=== PATIENT | female | born 1955 | race Caucasian/White ===

== ENCOUNTER 2019-04-04 12:22 | Emergency (ER) | payer MEDICARE, SELFPAY ==
[2019-04-04] VITALS (8 sets, daily range): BP systolic 124–146; BP diastolic 66–95; PULSE 71–89; RESP 16; TEMP 36.8; O2SAT 96–99; BMI 19.6
--- NOTE | 2019-04-04 12:56 | CT_ITS ---
STUDY: CT BRAIN WITHOUT CONTRAST REASON FOR EXAM: Female, 64 years old. RADIATION DOSAGE (If Supplied By Facility): CTDIvol = ( 44.99 ) mGy, DLP = ( 745.49 ) mGycm TECHNIQUE: Transaxial CT imaging of the brain was performed without administration of intravenous contrast material. Individualized dose optimization techniques were used for this CT. COMPARISON: No relevant priors. FINDINGS: Normal soft tissue structures. Normal calvarium. Normal size ventricles and extra-axial spaces for the patient's age. MLO minimal priventricular lucencies consistent with deep white matter ischemic changes. Normal basal ganglia and thalami. Normal brainstem. Normal cerebellum. There is no intracranial hemorrhage. There are no findings of an acute ischemic infarction. Normal visualized paranasal sinuses. CT/Brain/Head without Contrast IMPRESSION: Periventricular lucencies consistent with deep white matter ischemic changes. Electronically Signed: Gaurav Hennessy, at 14:21 EDT Tel , Service support ,
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
--- NOTE | 2019-04-04 18:29 | ED.RN ---
PER LATASHA PT REFERRED [facility]; NO ACCEPTANCE OF NOW
[2019-04-04 19:13] LABS: Bacteria 0 SEEN /hpf (None Seen); Squamous Epithelial Cells - UA 0 SEEN /hpf (5-10)
[2019-04-04 19:14] LABS: Color, Urine Yellow (Yellow); Glucose, Dipstick Normal (Normal); Ketone-Dipstick 15 mg/dl (Negative); Leukocyte Esterase-Dipstick Negative /ul (Negative); Nitrite-Dipstick Negative (Negative); Occult Blood-Urine Negative /ul (Negative); Protein-Dipstick Negative (Negative); Specific Gravity, Urine 1.005 (1.002-1.030); Urine Bilirubin Dipstick Negative (Negative); Urine Clarity Clear (Clear); Urine Urobilinogen Normal (Normal)
[2019-04-04 19:30] LABS: Mucous, Urine RARE /hpf (<or=2+); Red Blood Cells-Urine 0-5 SEEN /hpf (0-5); White Blood Cells 0-5 SEEN /hpf (0-5)
[2019-04-04 19:39] LABS: Amphetamine Urine VISTA NEGATIVE (<1000 ng/mL); Barbiturate Urine VISTA NEGATIVE (< 200 ng/mL); Benzodiazepine Urine VISTA NEGATIVE (< 200 ng/mL); Cocaine Urine VISTA NEGATIVE (< 300 ng/mL); Ecstacy Urine VISTA NEGATIVE (< 500 ng/mL); Methadone Urine VISTA NEGATIVE (< 300 ng/mL); PCP Urine VISTA NEGATIVE (< 25 ng/mL); THC Urine VISTA NEGATIVE (< 50 ng/mL); Vista UDS pH Range 7
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
--- NOTE | 2019-04-05 00:36 | ED.RN ---
THIS NURSE ATTEMPTED TO CALL [phone] TO GIVE REPORT ON PT. MESSAGE WAS LEFT ON MACHINE TO CALL [facility]. NO ONE WAS AVAILABLE TO ANSWER PHONE.
[2019-04-05 01:00] VITALS: RESP 12
[2019-04-05 01:49] VITALS: BP 126/79; PULSE 89; RESP 18; O2SAT 100
== END 2019-04-05 02:00 ==
PROVIDERS: Emergency Provider Emergency Medicine; Family Provider Internal Medicine; PCP Internal Medicine
DX: F03.91 Unspecified dementia, unspecified severity, with behavioral disturbance (principal); F41.9 Anxiety disorder, unspecified; F32.9 Major depressive disorder, single episode, unspecified; Z79.899 Other long term (current) drug therapy
CPT/HCPCS: 36415; 70450; 80053; 80061; 80307; 80320; 81001; 81002; 84443; 85025; 87086; 87088; 99283; G0480

== ENCOUNTER → 2019-04-04 | Outpatient (CLI) | payer MEDICARE, SELFPAY ==
[2019-04-04 13:13] LABS: Absolute Lymphocyte Count 1.03 X10^3/ul (0.83-4.51); Absolute Neutrophil Count 6.7 X10^3/uL (2.0-7.7); Basophil# 0.03 X10^3/uL; Basophil% 0.4 % (0-1); Eosinophil# 0.01 X10^3/uL; Eosinophils% 0.1 % (0-5); Hematocrit 43.6 % (37-47); Hemoglobin 13.7 g/dl (12.0-15.0); Lymphocyte # 1.03 X10^3/ul (4.0); Lymphocyte % 12.9 % (19-41); Mean Corp Hgb Conc 31.4 g/gl (32-36); Mean Corpuscular Hgb 29.3 pg (27.0-32.0); Mean Corpuscular Volume 93.2 fL (81-99); Mean Platelet Vol. 11.2 fl (6.2-12.0); Monocyte# 0.25 X10^3/uL; Monocyte% 3.1 % (0-10); Neutrophil # 6.68 X10^3/uL (2.7-7.7); Neutrophil % 83.4 % (47-70); Platelet Count 247 K/mm3 (150-450); RBC Distribution Width CV 14.9 % (11.6-14.6); RBC Distribution Width SD 50.2 fl (35.1-43.9); Red Blood Count 4.68 M/mm3 (4.2-5.4)
[2019-04-04 13:14] LABS: POSITIVE COUNT NO; POSITIVE DIFFERENTIAL NO; POSITIVE MORPHOLOGY NO
[2019-04-04 13:29] LABS: Color, Urine Yellow (Yellow); Glucose, Dipstick Normal (Normal); Ketone-Dipstick 5 mg/dl (Negative); Leukocyte Esterase-Dipstick 25 /ul (Negative); Nitrite-Dipstick Negative (Negative); Occult Blood-Urine Negative /ul (Negative); Protein-Dipstick 30 mg/dl (Negative); Urine Bilirubin Dipstick Negative (Negative); Urine Clarity Sl. Cloudy (Clear); Urine Urobilinogen 1 mg/dl (Normal)
[2019-04-04 13:30] LABS: ALB/GLOB Ratio 1.3 RATIO (0.9-2.4); AST(SGOT) 36 U/L (15-37); Alanine Aminotransfer ALT/SGPT 37 U/L (13-56); Alkaline Phosphatase 57 U/L (45-117); Anion Gap 5 (5-15); BUN 9 mg/dL (7-18); BUN/Creat Ratio 12.4 RATIO (10-20); Calcium,Total 8.7 mg/dL (8.5-10.1); Chloride 105 mmol/L (98-107); Cholesterol 191 mg/dL (200); Creatinine, Serum 0.72 mg/dL (0.55-1.02); EST Glomerular Filtration Rate 86 mL/min (>60); Est Glom Filt Rate - Afr Amer 104 mL/min (>60); Globulin 3.1 g/dL (2.2-4.2); Glucose 114 mg/dL (74-106); High Density Lipoprotein 88 mg/dL; Potassium 4.3 mmol/L (3.5-5.1); Protein, Total 7.1 g/dL (6.4-8.2); Sodium Level 142 mmol/L (136-145); Thyroid Stim Hormone (TSH) 0.85 uIU/mL (0.358-3.74); Triglycerides 50 mg/dL; Very Low Density Lipoprotein 10 mg/dL (5-40)
== END | disposition home or self-care (01) ==
LOC: LABSPEC 04-12 16:12
PROVIDERS: Family Provider Internal Medicine; PCP Internal Medicine; Referring Provider Nurse Practitioner; Visit Provider Nurse Practitioner
DX: F03.91 Unspecified dementia, unspecified severity, with behavioral disturbance (principal)
CPT/HCPCS: 80053; 80061; 81002; 84443; 85025; 87086; 87088

== ENCOUNTER → 2019-09-13 15:51 | Outpatient (CLI) | payer MEDICARE, SELFPAY ==
[2019-04-04 12:23] VITALS: BMI 19.6
--- NOTE | 2019-09-13 15:58 | RAD_ITS ---
STUDY: X-RAY - SACRUM/COCCYX REASON FOR EXAM: Female, 64 years old. Fall. Pain. TECHNIQUE: 3 view(s) of the sacrum and coccyx were obtained. COMPARISON: None. FINDINGS: Normal bilateral sacroiliac joints. Normal visualized sacral ala and fused sacral bodies. Normal sacrococcygeal junction with a normal angulation. Normal coccygeal segments. The presacral soft tissue structures are unremarkable. There is no demonstrated fracture. RAD/Sacrum-Coccyx min 2 Views IMPRESSION: Normal x-rays of the sacrum and coccyx. Electronically Signed: Juve Sanchez MD at 19:30 EST , Service support ,
== END ==
PROVIDERS: Family Provider Internal Medicine; PCP Internal Medicine; Referring Provider Nurse Practitioner; Visit Provider Nurse Practitioner
DX: M53.3 Sacrococcygeal disorders, not elsewhere classified (principal); W19.XXXA Unspecified fall, initial encounter
CPT/HCPCS: 72220

== ENCOUNTER 2019-12-14 19:30 | Emergency (ER) | payer MEDICARE, OTHER, SELFPAY ==
[2019-04-04 12:23] VITALS: BMI 19.6
[2019-12-14 19:32] VITALS: BP 115/87; PULSE 87; RESP 20; TEMP 36.5; O2SAT 98; BMI 19.2
--- NOTE | 2019-12-14 19:45 | CT_ITS ---
STUDY: CT BRAIN WITHOUT CONTRAST REASON FOR EXAM: Female, 64 years old. Mental status changes. Increased confusion and violence. HX OF DEMENTIA. RADIATION DOSAGE (If Supplied By Facility): CTDIvol = ( 44.99 ) mGy, DLP = ( 745.49 ) mGycm TECHNIQUE: Transaxial CT imaging of the brain was performed without administration of intravenous contrast material. Individualized dose optimization techniques were used for this CT. COMPARISON: April 04, 2019 FINDINGS: Normal soft tissue structures. Normal calvarium. There is mild cerebral atrophy with widening of the extra-axial spaces and ventricular dilatation. There are areas of decreased attenuation within the white matter tracts of the supratentorial brain, consistent with microvascular disease changes. Normal basal ganglia and thalami. Normal brainstem. Normal cerebellum. There is no intracranial hemorrhage. There are no findings of an acute ischemic infarction. Normal visualized paranasal sinuses. CT/Brain/Head without Contrast IMPRESSION: Chronic involutional changes of the brain. Electronically Signed: Earle Yao MD at 21:46 EST , Service support ,
--- NOTE | 2019-12-14 19:45 | EKG12_ITS ---
Test Reason : ALT LOC Blood Pressure : / mmHG Vent. Rate : 078 BPM Atrial Rate : 078 BPM P-R Int : 144 ms QRS Dur : 092 ms QT Int : 372 ms P-R-T Axes : 039 -08 022 degrees QTc Int : 424 ms Normal sinus rhythm Possible Left atrial enlargement Borderline ECG Confirmed by AIDEN PADILLA, JEFFREY ([id number]), purchase request editor CANDIE HOANG ([id number]) on 12/18/2019 3:50:22 PM Referred By: SUNG Confirmed By:JEFFREY WOLFE MD
[2019-12-14] MEDS: Ziprasidone IM 20 MG/ML VIAL IM (19:51)
[2019-12-14] MEDS: 0.9% Normal Saline 1,000 ML 150 ML IV (20:02)
[2019-12-14 20:04] LABS: Absolute Lymphocyte Count 2.27 X10^3/uL (0.83-4.51); Basophil# 0.07 X10^3/uL; Basophil% 0.9 % (0-1); Eosinophil# 0.05 X10^3/uL; Eosinophils% 0.6 % (0-5); Hematocrit 45.9 % (37-47); Hemoglobin 14.6 g/dL (12.0-15.0); Lymphocyte # 2.27 X10^3/ul (4.0); Lymphocyte % 28.3 % (19-41); Mean Corp Hgb Conc 31.8 g/dL (32-36); Mean Corpuscular Hgb 29.5 pg (27.0-32.0); Mean Corpuscular Volume 92.7 fL (81-99); Mean Platelet Vol. 10.6 fl (6.2-12.0); Monocyte# 0.67 X10^3/uL; Monocyte% 8.4 % (0-10); NRBC Flagged by Analyzer 0 % (0-5); Neutrophil # 4.95 X10^3/uL (2.7-7.7); Neutrophil % 61.7 % (47-70); Platelet Count 264 K/mm3 (150-450); RBC Distribution Width CV 14.6 % (11.6-14.6); RBC Distribution Width SD 49.6 fl (35.1-43.9); Red Blood Count 4.95 M/mm3 (4.2-5.4)
[2019-12-14 20:28] LABS: ALB/GLOB Ratio 1.2 RATIO (0.9-2.4); AST(SGOT) 19 U/L (15-37); Alanine Aminotransfer ALT/SGPT 20 U/L (13-56); Albumin, Serum 3.9 g/dL (3.2-5.0); Alkaline Phosphatase 55 U/L (45-117); Anion Gap 5 (5-15); BUN 9 mg/dL (7-18); BUN/Creat Ratio 12.8 RATIO (10-20); Chloride 111 mmol/L (98-107); EST Glomerular Filtration Rate 89 mL/min (>60); Est Glom Filt Rate - Afr Amer 108 mL/min (>60); Estimated Creatinine Clearance 69.34 ml/min; Globulin 3.2 g/dL (2.2-4.2); Glucose 94 mg/dL (74-106); Potassium 3.8 mmol/L (3.5-5.1); Protein, Total 7.1 g/dL (6.4-8.2); Sodium Level 143 mmol/L (136-145)
[2019-12-14 20:31] VITALS: PULSE 118; RESP 22; O2SAT 97
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
[2019-12-14 21:12] LABS: Acetaminophen (Tylenol) Level < 2.0 ug/mL (10.0-30.0); Salicylate < 1.7 mg/dL (2.8-20.0)
[2019-12-14 21:57] VITALS: BP 122/75; PULSE 90; RESP 16; O2SAT 98
[2019-12-14 22:00] VITALS: BP 105/74; PULSE 109; RESP 16; O2SAT 20
[2019-12-14] MEDS: DiphenhydrAMINE 50 MG/ML Syringe IV (22:54)
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
[2019-12-14 23:01] VITALS: RESP 16; O2SAT 98
--- NOTE | 2019-12-14 23:13 | CM.ED ---
Social Work Patient spouse returning from home and stating to not be able to locate insurance information. Collaborating further with crisis and registration, plan is for registration to have director of registration check into insurance tomorrow morning and the director is able to look into other programs that can identified patient insurance. Plan is to attempt to confirm patient insurance tomorrow morning during normal business hours. Once insurance is confirmed to consult social contact worker further or crisis. Updated medical team. Helio Villa MSW, JESIKA
[2019-12-14 23:16] LABS: Amphetamine Urine VISTA NEGATIVE (<1000 ng/mL); Barbiturate Urine VISTA NEGATIVE (< 200 ng/mL); Benzodiazepine Urine VISTA NEGATIVE (< 200 ng/mL); Cocaine Urine VISTA NEGATIVE (< 300 ng/mL); Ecstacy Urine VISTA NEGATIVE (< 500 ng/mL); Methadone Urine VISTA NEGATIVE (< 300 ng/mL); PCP Urine VISTA NEGATIVE (< 25 ng/mL); THC Urine VISTA NEGATIVE (< 50 ng/mL); Vista UDS pH Range 6
--- NOTE | 2019-12-14 23:23 | ED.VISSUMM ---
- ER Visit Summary Date of Service: 12/14/19 Chief Complaint: Dementia History of Present Illness: The patient is a 64 F who sees Marni Mares. Patient is agitated and clearly intoxicated and unable to give any history. Her is at bedside and he is a poor informant himself. He states that when the sun goes down she gets confused. Asked how long this is been going on he reports that there is been going for about a year. He states that he spoke with his plasterer maintenance who told him that the next time this happened he should bring her to the emergency department. The patient was admitted to a geriatric psychiatric facility in March 2019. Physical Examination: Vitals: Stable. Afebrile. General: Well-nourished and well-developed. Agitated and will not stay in bed. She is constantly yelling out nonsensical words. Head: Normocephalic atraumatic. Neck: Supple, no lymphadenopathy. No JVD. Nontender. Cardiovascular: Regular rate and rhythm. No murmurs. Respiratory: No respiratory distress. Clear to auscultation bilaterally. Abdominal: Soft, nontender, nondistended, normal bowel sounds. No guarding, rebound, or peritoneal signs. Back: Nontender. Extremities: Nontender, no edema. Skin: Normal color, no rash. Neurologic: Alert. Agitated. Moves all extremities well. Mental status exam: Patient appears their stated age. Good posture and grooming. Poor eye contact. Increased rate and volume with decreased latency of speech. No suicidal or homicidal ideation. No auditory or visual hallucinations. Flow of thought is very tangential and difficult to follow. Insight and judgment is poor. Test Results: EKG is sinus at [address] changes. UA is normal. LFTs normal. Chem-7 shows a part of 111. CBC is normal. Aspirin and Tylenol are negative. Talk screen is negative. Alcohol is 156. CT brain shows chronic changes. Emergency Department Course and Treatment: Patient was very agitated and would not stay in bed and was continually street screaming out. She was given Geodon IM. Once an IV was placed she continued to scream out and try to get out of bed. She is given a dose of Benadryl IV and is now resting comfortably. Treatment Plan: Patient was discussed with case management as well as with the counseling center. She will require placement. Unfortunately her is unable to find their insurance card so we do not know what their insurance coverage is. Disposition: Pending Impression: 1. Alcohol intoxication. 2. Dementia. 3. Aggressive behavior. This note was generated with [employer] dictation software. It may contain incorrect words, spelling, and punctuation that were not noted in review of the chart prior to signing ED Disposition - Plan for ED Patient: Referrals: Lillian Dasilva MD [Primary Care Provider] -
[2019-12-14 23:52] LABS: Bacteria 0 SEEN /hpf (None Seen); Mucous, Urine 0 SEEN /hpf (<or=2+); Squamous Epithelial Cells - UA 0 SEEN /hpf (5-10)
[2019-12-14 23:53] LABS: Color, Urine Yellow (Yellow); Glucose, Dipstick Normal (Normal); Ketone-Dipstick Negative (Negative); Leukocyte Esterase-Dipstick Negative /ul (Negative); Nitrite-Dipstick Negative (Negative); Occult Blood-Urine Negative /ul (Negative); Protein-Dipstick Negative (Negative); Specific Gravity, Urine 1.005 (1.002-1.030); Urine Bilirubin Dipstick Negative (Negative); Urine Clarity Clear (Clear); Urine Urobilinogen Normal (Normal)
[2019-12-15] VITALS (8 sets, daily range): BP systolic 101–150; BP diastolic 74–107; PULSE 72–94; RESP 13–18; O2SAT 97–98
[2019-12-15] LABS: Red Blood Cells-Urine 0-5 SEEN /hpf (0-5); White Blood Cells 0-5 SEEN /hpf (0-5)
[2019-12-15] MEDS: 0.9% Normal Saline 1,000 ML 150 ML IV (04:17)
[2019-12-15 04:28] LABS: Alcohol, Blood (Medical)-Serum < 3.0 mg/dL
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
--- NOTE | 2019-12-15 08:00 | ED.RN ---
BREAKFAST TRAY GIVEN TO PT. PT DID NOT EAT. PT REQUEST WATER, BUT DID NOT DRINK THAT EITHER FOR FEAR THAT IT WOULD KILL HER. PT WAS MOVED TO BED 2 AFTER BEING FOUND ROAMING THE HALLWAY. PT CONTINUES TO VOICE CONCERNS OF DYING AND BEING KILLED. PT REASSURED SEVERAL TIMES THAT ED WAS A PLACE OF SAFETY. PT REQUESTS FOLLOWING THIS NURSE EVERYWHERE AND NOT BEING LEFT ALONE. PT TOLD THAT SHE NEEDED TO REMAIN IN ROOM AND THAT SHE WAS NOW IN A ROOM THAT SHE COULD BE OBSERVED FOR SAFETY AND THAT SHE COULD SEE PEOPLE. PT CONTINUES TO BE FEARFUL AND UPSET. PHYSICIAN NOTIFIED OF PT STATUS. MEDICATION ORDERED AND WILL BE GIVEN IF PT ESCALATES. WILL CONTINUE TO MONITOR AND REDIRECT NECESSARY.
--- NOTE | 2019-12-15 08:04 | ED.RN ---
PT REMOVED IV. NEW PERIPHERAL LINE WILL NOT BE INITIATED AT THIS TIME.
[2019-12-15] MEDS: Ziprasidone IM 20 MG/ML VIAL IM (08:20)
--- NOTE | 2019-12-15 10:20 | CM.ED ---
SOCIAL WORK REVIEWED CHART AND DISCUSSED CASE WITH CHOCOLATE COATER, HUA. REFERRAL CALLED AND FAXED TO [facility] AT THIS TIME. AWAITING ACCEPTANCE. Herlinda LOPEZ, LABOR EMPLOYMENT ASSOCIATE, HAND STONER.
--- NOTE | 2019-12-15 10:50 | CM.ED ---
SOCIAL WORK PATIENT ACCEPTED TO [facility] BY DR. NAVA TO [facility]. REPORT TO BE CALLED TO . STAFF UPDATED. CARTON STENCILER TO SET UP TRANSPORT. [facility] [employer] FAXED TO [facility] PER REQUEST. Herlinda LOPEZ, EQUIPMENT MANAGER, LABORATORY TECH.
[2019-12-15] MEDS: Haloperidol Lactate 5 MG/ML Vial IM (11:55)
[2019-12-15] MEDS: DiphenhydrAMINE 50 MG/ML Syringe IM (11:55)
--- NOTE | 2019-12-15 12:20 | ED.RN ---
PT CHANGED OUT OF GOWN AND INTO STREET CLOTHES. ATTEMPT WAS MADE TO PLACE PT BACK IN GOWN. PT ESCALATED AND BECAME PHYSICALLY COMBATIVE. PT PLACED IN BED AND BEGAN KICKING AND ATTEMPTING TO BITE AT STAFF. PT GIVEN MEDICATION PER MAR AND CLOTHES WERE CUT OFF OF PT. GOWN WAS PLACED AND PT STOPPED PHYSICAL AGGRESSION. STAFF REMAINED AT BEDSIDE UNTIL TRANSPORTATION ARRIVED. REPORT CALLED TO CATHRYN HELLER AT [facility]. CONTACT INFORMATION TO [facility] WAS GIVEN.
== END 2019-12-15 12:24 ==
PROVIDERS: Emergency Medicine; Emergency Provider Emergency Medicine; PCP Internal Medicine
DX: F10.129 Alcohol abuse with intoxication, unspecified (principal); F03.90 Unspecified dementia, unspecified severity, without behavioral disturbance, psychotic disturbance, mood disturbance, and anxiety; Z79.899 Other long term (current) drug therapy
CPT/HCPCS: 70450; 80053; 80307; 80320; 80329; 81001; 85025; 93005; 96361; 96372; 96374; 99285; J7030; A4216; G0480; J3486